=== PATIENT | male | born 1990 | race Caucasian/White ===

== ENCOUNTER 2016-11-22 16:26 | Emergency (ER) | payer OTHER, BC ==
[2016-11-22 16:32] VITALS: BP 173/85; PULSE 57; RESP 16; TEMP 98.4; O2SAT 96
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
== END 2016-11-22 18:10 | disposition home or self-care (01) ==
DX: S16.1XXA Strain of muscle, fascia and tendon at neck level, initial encounter (principal); V49.49XA Driver injured in collision with other motor vehicles in traffic accident, initial encounter; Y92.410 Unspecified street and highway as the place of occurrence of the external cause; Y93.89 Activity, other specified

== ENCOUNTER 2017-12-03 23:48 | Emergency (ER) | payer OTHER, BC ==
[2017-12-04] MEDS ORDERED: EMTRICITABINE/TENOFOVIR 200MG/300MG TAB PO SCH
[2017-12-04] MEDS ORDERED: RALTEGRAVIR 400 MG TAB PO SCH
[2017-12-04] MEDS ORDERED: EMTRICITABINE/TENOFOVIR 200MG/300MG TAB PO ONE (00:42)
[2017-12-04] MEDS ORDERED: RALTEGRAVIR 400 MG TAB PO ONE (00:42)
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
[2017-12-04 01:06] LABS: PLATELET COUNT 211 10^3/uL (150-400)
[2017-12-04 01:51] VITALS: BP 140/97; PULSE 81; RESP 16; TEMP 97.5; O2SAT 95
[2017-12-05 02:18] LABS: HEPATITIS C ANTIBODY TOTAL NEGATIVE (NEGATIVE); HIV TYPE 1 AND 2 NEGATIVE (NEGATIVE)
== END 2017-12-04 01:48 | disposition home or self-care (01) ==
DX: Z77.21 Contact with and (suspected) exposure to potentially hazardous body fluids (principal)
CPT/HCPCS: G0472

== ENCOUNTER 2018-11-14 11:34 | Emergency (ER) | payer OTHER ==
--- NOTE | 2018-11-14 11:38 | EDPHY ---
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/ LIGHT HEADED,TINGLING LIPS Location: Head Quality: Lightheadedness, tingling lip Duration: 30 min prior to arrival Signs and Symptoms: no shortness of breath at rest, no shortness of breath on exertion, no cough, no chest pain, no palpitations, no lower extremity edema, no wheezing, no orthopnea, no paroxysmal nocturnal dyspnea, no fever, no injury/ trauma, no hemoptysis, no carpal pedal spasms Timing: Gradually improved Severity: [id number] Context: Patient works for the local [employer] and was potentially exposed to and will like substance that has been tested positive for THC. He reports that almost immediately started to feel lightheaded and dizzy but denies the room spinning and then developed some tingling in his lips. He denies chest pain, nausea, vomiting, shortness of breath, hallucinations. Patient reports that he wash his hands and his symptoms have slowly improved. Denies any history of lung disease. Modifying Factors: Washed hands Comment: ROS: A comprehensive 10 system review of systems is otherwise negative aside from elements mentioned in the history of present illness. MEDICAL/SURGICAL/SOCIAL HISTORY: Medical history: Generally healthy. Does not take any regular medications. 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 CONSTITUTIONAL: Well-developed, well-nourished adult male, awake and alert, no obvious distress HEENT: Atraumatic and normocephalic, PERRL, EOMI. Nares patent; no rhinorrhea; no nasal mucosal edema. Tympanic membranes clear. Oropharynx clear, no exudate and moist pink mucosa. Airway patent. No lymphadenopathy. No meningismus. Cardiovascular: Normal S1/S2, regular rate, regular rhythm, without murmur rub or gallop. PULMONARY/CHEST: Symmetrical and nontender. Clear to auscultation bilaterally. Good air movement. No accessory muscle usage. ABDOMEN: Soft, nondistended, nontender, no rebound, no guarding, no peritoneal signs, no masses or organomegaly. No CVAT. EXTREMITIES: 2/2 pulses, strength 5/5, no deformities, no clubbing, no cyanosis or edema. NEUROLOGICAL: no focal neuro deficits. GCS 15. SKIN: Warm and dry, no erythema. no rash. Good capillary refill. Source: Patient Exam Limitations: No limitations - Medical/Surgical History Hx Asthma: No Hx Chronic Respiratory Disease: No Hx Diabetes: No Hx Cardiac Disease: No Hx Renal Disease: No Hx Cirrhosis: No Hx Alcoholism: No Hx HIV/AIDS: No Hx Splenectomy or Spleen Trauma: No Other PMH: none - Social History Smoking Status: Never smoked Constitutional: Initial Vital Signs Temperature (C) 36.8 C 11/14/18 11:39 Heart Rate 60 11/14/18 11:39 Respiratory Rate 18 11/14/18 11:39 Blood Pressure 148/61 H 11/14/18 11:39 O2 Sat (%) 94 11/14/18 11:39 O2 Delivery Mode Nasal Cannula O2 (L/minute) 2 Allergies/Adverse Reactions: No Known Allergies Allergy (Verified 11/14/18 11:41) Home Medications: Medication Instructions Recorded Emtricitabine/Tenofovir (Tdf) 1 each PO DAILY #3 tablet 12/04/17 [Truvada 200 mg-300 mg Tablet] Raltegravir [Isentress] 400 mg PO BID #7 tab 12/04/17 Medical Decision Making ED Course/Re-evaluation: Vital signs reviewed and stable upon arrival. Placed on library monitor. IV access and 1 L normal saline given. Patient placed on 1-2 L nasal cannula oxygen Monitored for 1-2 hours No signs of anaphylaxis/angioedema/airway compromise/intoxication This was an unintentional drug exposure Urine drug screen initially ordered per patient request despite lack of sensitivity due to topical contact approximately 30 min prior to arrival. After further discussion, patient has politely declined any further drug screen. This patient was seen under the supervision of my secondary supervising physician. I evaluated care for this patient independently. Discussed this patient with Dr. Ortiz who did not see the patient. Differential Diagnosis: Dizziness including but not limited to peripheral and central causes of vertigo , orthostatic causes including dehydration, and blood loss. - Data Points Medications Given: Discontinued Medications Sodium Chloride (Ns) 1,000 mls @ 0 mls/hr IV ONCE ONE; Wide Open PRN Reason: Protocol Stop: 11/14/18 11:43 Last Admin: 11/14/18 11:54 Dose: 1,000 mls Departure - Departure Disposition: Home, Routine, Self-Care Clinical Impression: Accidental marijuana poisoning Qualifiers: Encounter type: initial encounter Qualified Code(s): T40.7X1A - Poisoning by cannabis (derivatives), accidental (unintentional), initial encounter Condition: Good Instructions: Medicinal Use of Cannabis (ED) Additional Instructions: Consume a minimum of 8-10 glasses of water or electrolyte fluid replacement drinks that include Gatorade, Powerade, Pedialyte. Do not perform any moderate or strenuous exercise today. Patient is medically cleared to return to work today. Work Related Injury: Date of Injury (if different from Date of Service): 11/15/2018 Your work restrictions, if any, last only until the next business day. Formal evaluation for work restrictions beyond one day must be arranged through your employer's workman's compensation provider. Restrictions are noted below: Return to work today. Referrals: PCP Not In,Adrian [Medical Doctor] - As per Instructions Marisel Salazar MD [Medical Doctor] - As per Instructions
[2018-11-14] MEDS ORDERED: NS 1,000 ML IV ONE (11:42)
[2018-11-14 13:19] VITALS: BP 123/73
== END 2018-11-14 13:19 | disposition home or self-care (01) ==
LOC: EDUNIT#
DX: T40.7X1A Poisoning by cannabis (derivatives), accidental (unintentional), initial encounter (principal); Y99.0 Civilian activity done for income or pay